=== PATIENT | female | born 1985 | race Caucasian/White ===

== ENCOUNTER 2016-11-07 15:22 | Emergency (ER) | payer OTHER ==
[~2016-11-07 15:22] MED LIST: ALBUTEROL17 GM INH; CELEXA PO; CIPRO PO; DEPO-PROVER150 MG/M1 IM; DOXYCYCLINE PO; FAMOTIDINE PO; FLAGYL PO; MOTRIN400 MG PO; MOTRIN600 MG PO; NO MEDICATIONS; POLYTRIM EYE DR10 ML OU; PREDNISONE PO; PRILOSEC PO; PROAIR HFA8.5 GM INH; Q-DRYL25 M1 PO; ROBAXIN500 MG PO; STERAPRED5 MG/DOSE1 PO; ULTRAM PO; VOLTAREN75 MG PO; ZITHROMAX PO; ZITHROMAX1 G/PKT PO; ZOFRAN PO; ZOFRANODT PO; ZYRTEC10 M2 PO
== END 2016-11-07 15:43 | disposition home or self-care (01) ==
LOC: CFTX 15:22
DX: L50.1 Idiopathic urticaria (principal); F17.210 Nicotine dependence, cigarettes, uncomplicated; F41.9 Anxiety disorder, unspecified; F32.9 Major depressive disorder, single episode, unspecified; Z88.0 Allergy status to penicillin; Z88.5 Allergy status to narcotic agent; Z88.6 Allergy status to analgesic agent; Z79.899 Other long term (current) drug therapy
CPT/HCPCS: 99282